=== PATIENT | female | born 1960 | race Caucasian/White ===

== ENCOUNTER 2019-12-02 21:12 | Emergency (ER) | payer MEDICAID ==
[~2019-12-02] VITALS: Ht 157.5 cm; Wt 49.9 kg
--- NOTE | 2019-12-02 21:30 | NUR ---
PT BIBRA C/O ALTERED, OVERDOSED ON HEROIN AND XANAX. PER RA PT WAS GIVEN NARCAN 4MG [employer]. 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 PT SAT 92% ON RA. PT PLACED ON 3L NC, SAT 100%. MD AT BEDSIDE FOR EVAL. AWAITING ORDERS. WILL CONTINUE TO MONITOR.
--- NOTE | 2019-12-02 21:31 | NUR ---
PT PLACED IN GOWN, NO ACUTE DISTRESS NOTED.
--- NOTE | 2019-12-02 21:35 | NUR ---
LINE ESTABLISHED RAC 20G, BLOOD DRAWN, SENT TO LAB.
--- NOTE | 2019-12-02 21:41 | NUR ---
ASKED PT TO PROVIDE URINE SAMPLE
[2019-12-02 22:01] LABS: BASOPHILS % (AUTO) 0.5 % (0.0-2.0); HEMATOCRIT 39 % (33-45); HEMOGLOBIN 12.6 g/dL (11.5-14.8); LYMPHOCYTES # (AUTO) 1.1 /CMM (0.8-4.8); LYMPHOCYTES % (AUTO) 12.8 % (20.0-44.0); MEAN CORPUSCULAR HGB CONC 33 g/dl (31.0-36.0); MEAN CORPUSCULAR VOLUME 84 fL (82-100); MONOCYTES # (AUTO) 0.6 /CMM (0.1-1.30); MONOCYTES % (AUTO) 6.7 % (2.0-12.0); NEUTROPHILS # (AUTO) 6.6 /CMM (1.8-8.9); PLATELET COUNT (AUTO) 332 /CMM (150-450); RED BLOOD CELL COUNT(AUTO) 4.58 MIL/uL (4.0-5.2); WHITE BLOOD COUNT (AUTO) 8.3 K/uL (4.3-11.0)
[2019-12-02 22:12] LABS: CALCIUM, SERUM 9.3 mg/dL (8.5-10.1); CARBON DIOXIDE 27 mmol/L (21-32); CHLORIDE 99 mmol/L (98-107); CREATININE 0.7 mg/dL (0.6-1.3); GLUCOSE 94 mg/dL (74-106); POTASSIUM 3.3 mmol/L (3.5-5.1); SODIUM SERUM 136 mmol/L (136-145); UREA NITROGEN, BLOOD 7 mg/dL (7-18)
[2019-12-02 22:17] LABS: ALANINE AMINOTRANSFERASE 23 U/L (12-78); ALCOHOL, BLOOD 21 mg/dL (0-0); ALKALINE PHOSPHATASE 113 U/L (46-116); ASPARTATE AMINOTRANSFERASE 23 U/L (15-37); BILIRUBIN,DIRECT 0.2 mg/dL (0.0-0.2); BILIRUBIN,TOTAL 0.8 mg/dL (0.2-1.0); TOTAL PROTEIN, SERUM 8.3 g/dL (6.4-8.2)
[2019-12-02 22:22] LABS: ACETAMINOPHEN < 10 ug/ml (10-30)
[2019-12-02 22:58] LABS: APPEARANCE,URINE CLEAR (CLEAR); BILIRUBIN,URINE NEGATIVE (NEGATIVE); BLOOD, URINE TRACE-INTA Ery/uL (NEGATIVE); COLOR,URINE YELLOW (YELLOW); KETONES,URINE NEGATIVE (NEGATIVE); LEUKOCYTE ESTERASE ,URINE NEGATIVE (NEGATIVE); NITRITE, URINE NEGATIVE (NEGATIVE); PROTEIN,URINE NEGATIVE (NEGATIVE); UGLUCOSE NEGATIVE (NEGATIVE); UROBILINOGEN,URINE 0.2 EU/dL (0.2)
[2019-12-02 23:05] LABS: BACTERIA,URINE None seen /HPF (None Seen); RBC,URINE 0-2 /HPF (0-2); SQUAMOUS EPITHELIAL CELL,UR Few /HPF (None Seen); WBC,URINE 0-2 /HPF (0-3)
[2019-12-03] MEDS ORDERED: ACETAMINOPHEN ES 500 MG TABLET PO ONE (00:30)
[2019-12-03] MEDS ORDERED: ACETAMINOPHEN ES 500 MG TABLET ONE (00:33)
--- NOTE | 2019-12-03 01:15 | NUR ---
PT AWAKE, C/O HEADACHE, TYLENOL GIVEN. VSS.
--- NOTE | 2019-12-03 02:31 | NUR ---
CALLED PT'S DAUGHTER MULTIPLE TIMES, DID NOT ANSWER. PT STATED SHE WOULD LIKE TO LEAVE THE E.D.
--- NOTE | 2019-12-03 02:34 | NUR ---
PT AMBLATED TO THE RESTROOM WITH STEADY GAIT. PROVIDED WITH PANTS.
--- NOTE | 2019-12-03 02:43 | NUR ---
Patient discharged to home in stable condition. Written and verbal after care instructions given. Patient verbalizes understanding of instruction. Pt ambulated with steady gait. Spoke to the PT regarding waiting for her daughter to pick her up. Pt stated she will walk to her daughter's house in [place]. Pt refused to sign homeless waiver.
[2019-12-03 02:44] VITALS: BP 134/79
== END 2019-12-03 02:46 | disposition home or self-care (01) ==
LOC: ER 21:15
DX: T40.1X1A Poisoning by heroin, accidental (unintentional), initial encounter (principal); T42.4X1A Poisoning by benzodiazepines, accidental (unintentional), initial encounter; L02.416 Cutaneous abscess of left lower limb; I10 Essential (primary) hypertension; J45.909 Unspecified asthma, uncomplicated; Z86.73 Personal history of transient ischemic attack (TIA), and cerebral infarction without residual deficits; Y92.89 Other specified places as the place of occurrence of the external cause
CPT/HCPCS: 36415; 80048-TC; 80076-TC; 81000-TC; 85025-TC; G0480

== ENCOUNTER 2023-01-18 02:51 | Emergency (ER) | payer MEDICAID ==
[~2023-01-18] VITALS: Ht 157.5 cm; Wt 64.4 kg
[2023-01-18 04:09] LABS: BASOPHILS % (AUTO) 0.1 % (0.0-2.0); EOSINOPHILS # (AUTO) 0.3 K/uL (0.0-0.7); EOSINOPHILS % (AUTO) 4.6 % (0.0-6.0); HEMATOCRIT 33 % (33-45); HEMOGLOBIN 11.3 g/dL (11.5-14.8); LYMPHOCYTES # (AUTO) 0.4 K/uL (0.8-4.8); LYMPHOCYTES % (AUTO) 6.2 % (20.0-44.0); MEAN CORPUSCULAR HEMOGLOBIN 28 PG (26.0-33.0); MEAN CORPUSCULAR HGB CONC 34 g/dl (31.0-36.0); MEAN CORPUSCULAR VOLUME 82 fL (82-100); MONOCYTES # (AUTO) 0.9 K/uL (0.1-1.30); MONOCYTES % (AUTO) 15.5 % (2.0-12.0); NEUTROPHILS # (AUTO) 4.5 K/uL (1.8-8.9); NEUTROPHILS % (AUTO) 73.6 % (43.0-81.0); PLATELET COUNT (AUTO) 232 K/uL (150-450); RED BLOOD CELL COUNT(AUTO) 4.05 MIL/uL (4.0-5.2); RED CELL DISTRIBUTION WIDTH 13.4 % (11.5-15.0); WHITE BLOOD COUNT (AUTO) 6.1 K/uL (4.3-11.0)
[2023-01-18 04:30] LABS: CALCIUM, SERUM 9.2 mg/dL (8.5-10.1); CREATININE 0.8 mg/dL (0.6-1.3); POTASSIUM 3.2 mmol/L (3.5-5.1)
[2023-01-18] MEDS ORDERED: VANCOMYCIN 1 GM in IV D5W 250 ML IV ONE (05:30)
[2023-01-18] MEDS ORDERED: VANCOMYCIN 1 GM /D5W 250 ML PB IV ONE (05:37)
[2023-01-18 08:10] VITALS: BP 169/80; TEMP 98.1; O2SAT 100
== END 2023-01-18 08:11 | disposition home or self-care (01) ==
LOC: ER 02:57
DX: H60.11 Cellulitis of right external ear (principal); I10 Essential (primary) hypertension; J45.909 Unspecified asthma, uncomplicated; Z88.0 Allergy status to penicillin; Z88.8 Allergy status to other drugs, medicaments and biological substances
CPT/HCPCS: 99285; 96365; 70450; 85025; 80048; 36415; J3370 ×2; A4223; J7060